=== PATIENT | male | born 1960 | race African-American/Black ===

== ENCOUNTER 2024-04-30 19:18 | Inpatient (IN) | payer OTHER ==
[~2024-04-30] VITALS: Ht 193 cm; Wt 171.3 kg
--- NOTE | 2024-04-30 19:43 | ED.PDOC ---
History of Present Illness HPI Comments 63M presents to the ER w/ no prior Hx associated top the c/c of generalized weakness. Pt reports that he woke up this morning by feeling weak and stated that whenever he gets up to walk he gets very dizzy. Pt states that he also had black stool of /D before going to work but when he went again after work it formed but stayed black in color. PMHx of HTN. Denies chills, fever, N/V/D, SOB, CP or other associated symptom's, modifiers, or recent injuries or sick contact at this time. Time Seen by MD: 19:25 Reviewed Notes: Nurses Notes, Medications, Allergies Allergies: Coded Allergies: NO KNOWN ALLERGIES (Unverified , 04/30/24) Information Source: Patient Mode of Arrival: Ambulatory Severity: Moderate Timing: Hours Duration: Since onset, Hours Prehospital treatment: None Past Medical History PAST MEDICAL HISTORY: HTN Surgical History: Denies all surgeries Family History Family History: Reviewed,noncontributory to illness, Unknown Social History Smoker: Non-Smoker Alcohol: Denies ETOH Use Drugs: Denies Drug Use Lives In: Home Constitutional: reports: weakness; denies: chills, diaphoresis, fatigue, fever, malaise, sweats, others EENTM: denies: blurred vision, double vision, ear bleeding, ear discharge, ear drainage, ear pain, ear ringing, eye pain, eye redness, hearing loss, mouth pain, mouth swelling, nasal discharge, nose bleeding, nose congestion, nose pain, photophobia, tearing, throat pain, throat swelling, voice changes, others Respiratory: denies: cough, hemoptysis, orthopnea, SOB at rest, shortness of breath, SOB with excertion, stridor, wheezing, others Cardiovascular: denies: chest pain, dizzy spells, diaphoresis, Dyspnea on exertion, edema, irregular heart beat, left arm pain, lightheadedness, palpitations, PND, syncope, others Gastrointestinal: reports: diarrhea, rectal bleeding; denies: abdomen distended, abdominal pain, blood streaked bowels, constipated, dysphagia, difficulty swallowing, hematemesis, melena, nausea, poor appetite, poor fluid intake, rectal pain, vomiting, others Genitourinary: denies: burning, dysuria, flank pain, frequency, hematuria, incontinence, penile discharge, penile sore, pain, testicle pain, testicle swelling, urgency, others Neurological: reports: dizziness; denies: fainting, headache, left sided numbness, left sided weakness, numbness, paresthesia, pre-existing deficit, right sided numbness, right sided weakness, seizure, speech problems, tingling, tremors, weakness, others Musculoskeletal: denies: back pain, gout, joint pain, joint swelling, muscle pain, muscle stiffness, neck pain, others Integumetry: denies: bruises, change in color, change in hair/nails, dryness, laceration, lesions, lumps, rash, wounds, others Allergic/Immunocompromised: denies: Difficulty Healing, Frequent Infections, Hives, Itching, others Hematologic/Lymphatic: denies: anemia, blood clots, easy bleeding, easy bruising, swollen glands, others Endocrine: denies: excessive hunger, excessive sweating, excessive thirst, excessive urination, flushing, intolerance to cold, intolerance to heat, unexplained weight gain, unexplained weight loss, others Psychiatric: denies: anxiety, bipolar disorder, depression, hopeless, panic disorder, schizophrenia, sleepless, suicidal, others All Other Systems: Reviewed and Negative Physical Exam Exam Comments Black Stool Guaiac is Positive General Appearance: No Apparent Distress, Normal HEENT: Normal ENT Inspection, Pharynx Normal, TMs Normal Neck: Full Range of Motion, Non-Tender, Normal, Normal Inspection Respiratory: Chest Non-Tender, Lungs Clear, No Accessory Muscle Use, No Respiratory Distress, Normal Breath Sounds Cardiovascular: No Edema, No JVD, No Murmur, No Gallop, Normal Peripheral Pulses, Regular Rate/Rhythm Breast Exam: Deferred Gastrointestinal: No Organomegaly, Non Tender, No Pulsatile Mass, Normal Bowel Sounds, Soft Genitalia: Deferred Pelvic: Deferred Rectal: Deferred Extremities: No calf tenderness, Normal capillary refill, Normal inspection, Normal range of motion, Non-tender, No pedal edema Musculoskeletal : Apperance: Normal Neurologic: Alert, deputy chief magistrate II-XII nml as Tested, No Motor Deficits, Normal Affect, Normal Mood, No Sensory Deficits Cerebellar Function: Normal Reflexes: Normal Skin: Dry, Normal Color, Warm Lymphatic: No Adenopathy Was a procedure done? Was a procedure done?: No Differential Dx Considerations may include: UGIB, LGUB, anemia, aortic-entero fistula, diverticulosis/ itis, PUD, esophageal varices, coagulopathy, hemorrhoids, GI malignancy, swallowed blood from epistaxis X-Ray, Labs, Meds, VS Vital Signs Date Time Temp Pulse Resp B/P (MAP) Pulse Ox O2 Delivery O2 Flow Rate FiO2 04/30/24 19:53 98.1 112 18 166/74 (104) 99 Lab Test 04/30/24 21:20 04/30/24 21:00 Range/Units Urine Color Light-yellow Yellow Urine Clarity Clear Clear Urine pH 5.5 5.0-9.0 Urine Specific [place] 1.025 1.001-1.035 Urine Protein Negative Negative Urine Ketones Negative Negative Urine Blood Negative Negative /uL Urine Nitrite Negative Negative Urine Bilirubin Negative Negative Urine Urobilinogen Normal Negative mg/dL Urine Leukocyte Esterase 3+ Negative /uL Urine RBC 1 0 - 3 /hpf Urine WBC 11 0 - 3 /hpf Urine Squamous Epithelial Cells Few <5 /hpf Urine Bacteria None seen None Seen /hpf Urine Hyaline Casts Few 0 - 2 /lpf Urine Glucose Normal Normal mg/dL White Blood Count 12.8 H 4.4-10.8 10^3/uL Red Blood Count 4.84 4.5-5.90 10^6/uL Hemoglobin 13.9 13.5-17.5 g/dL Hematocrit 42.1 41.0-53.0 % Mean Corpuscular Volume 87.1 80.0-100.0 fL Mean Corpuscular Hemoglobin 28.7 28.0-32.0 pg Mean Corpuscular Hemoglobin Concent 32.9 32.0-36.0 g/dL Red Cell Distribution Width 14.1 11.8-14.3 % Platelet Count 217 140-450 10^3/uL Mean Platelet Volume 7.8 6.9-10.8 fL Neutrophils (%) (Auto) 71.0 37.0-80.0 % Lymphocytes (%) (Auto) 20.5 10.0-50.0 % Monocytes (%) (Auto) 7.0 0.0-12.0 % Eosinophils (%) (Auto) 0.7 0.0-7.0 % Basophils (%) (Auto) 0.8 0.0-2.0 % Neutrophils # (Auto) 9.1 H 1.6-8.6 10 ^3/uL Lymphocytes # (Auto) 2.6 0.4-5.4 10 ^3/uL Monocytes # (Auto) 0.9 0-1.3 10 ^3/uL Eosinophils # (Auto) 0.1 0-0.8 10 ^3/uL Basophils # (Auto) 0.1 0-0.2 10 ^3/uL Nucleated Red Blood Cells 0.1 % Sodium Level 141 136-145 mmol/L Potassium Level 3.8 3.5-5.1 mmol/L Chloride Level 108 H 98-107 mmol/L Carbon Dioxide Level 24 20-31 mmol/L Anion Gap 9 5-15 Blood Urea Nitrogen 33 H 9-23 mg/dL Creatinine 1.21 0.700-1.30 mg/dL Glomerular Filtration Rate Calc 68 >90 mL/min BUN/Creatinine Ratio 27.3 H 10.0-20.0 Serum Glucose 120 H 74-106 mg/dL Calcium Level 9.3 8.7-10.4 mg/dL Time of 1ST Reevaluation: 19:55 Reevaluation 1ST: Improved Time of 2ND Reevaluation: 21:40 Reevaluation 2ND: Improved Patient Education/Counseling: Diagnosis, Treatment, Prognosis, Need For Follow Up Family Education/Counseling: No Family Present Additional Information - The following tests were ordered, and results were reviewed by me: CT, BBK, LAB - I reviewed and agreed with the following test results read by other provider: CT - I discussed treatments and results with medical personnel and: (medical economics consultant) pt has melena and it is guaiac positive. he does use NSAID for his knee, which likely caused gastritis/PUD, leading to UGIB. he is symptomatic from it, but vss are so far stable and he has no hemorrhaged here. elleneve, with him being quite symptomatic, i will admit him for gi evaluation and close observation Departure 1 Departure Time of Disposition: 22:09 Impression: Primary Impression: UGIB (upper gastrointestinal bleed) Additional Impressions: UTI (urinary tract infection) Qualified Codes: N30.00 - Acute cystitis without hematuria Cholelithiasis Qualified Codes: K80.20 - Calculus of gallbladder without cholecystitis without obstruction Disposition: ADMITTED INPATIENT Admit to: Med Surg Condition: Fair Critical Care Note Critical Care Time?: No Stability Stability form required: No I personally scribed for SHIRIN SERRANO MD ([facility]) on 04/30/24 at 19:43. Electronically submitted by Jeffrey Adrian ([email or web address]). SHIRIN SERRANO MD Apr 30, 2024 19:43
--- NOTE | 2024-04-30 20:57 | DVH ---
Exam: CT CT AB PEL WO CON-NO ORAL OR IV History: GI BLEED Comparison Study: None available at time of dictation. TECHNIQUE: Multidetector CT of the abdomen was performed from lung bases to pubic symphysis. Imaging was performed without IV contrast. Axial, coronal and sagittal multiplanar reformats were obtained fr om the axial data set by the technologist. Radiation Dose Information: CT Dose: CTDI volume is 25.85 mGy. Dose-length product is 1512.38 mGy*cm FINDINGS: Evaluation of solid organs is limited due to lack of intravenous contrast use. Findings: Lung Bases: No acute or significant lung base finding. Normal heart size. No pleural or pericardial effusion. Liver: The liver is normal in size. No focal lesions. Gallbladder and Biliary Tree: Cholelithiasis Spleen: Unremarkable Pancreas: The pancreas is grossly normal in appearance. Adrenal Glands: Unremarkable Kidneys: Kidneys are grossly normal without calculi or hydronephrosis. Bladder: Grossly unremarkable for degree of distention. Bowel: The stomach is grossly normal in appearance. Small bowel and colon are normal in caliber and d istribution. The appendix is not visualized; however, no secondary findings of acute appendicitis id entified. Ascites: Absent Lymphadenopathy: No mesenteric, retroperitoneal or periportal lymphadenopathy. Abdominal Wall and Mesentery: Unremarkable. Vasculature: The visualized abdominal aorta is normal in size and caliber. Evaluation of abdominal a nd pelvic vessels is limited due to lack of intravenous contrast. Pelvic Organs: Unremarkable Musculoskeletal: No aggressive focal bony lesions, acute fractures or dislocation. Soft tissues: Unremarkable IMPRESSION: 1. No findings of bowel obstruction. 2. Cholelithiasis 3. No free air or free fluid. Radiation optimization: All CT scans at this facility use at least one of these dose optimization kip hniques: automated exposure control mA and/or kV adjustment per patient size (includes targeted exam s where dose is matched to clinical indication) or iterative reconstruction.
[2024-04-30 21:21] LABS: Urine Bacteria None Seen /hpf (None Seen)
[2024-04-30 21:30] LABS: Urine Blood Negative /uL (Negative); Urine Clarity Clear (Clear); Urine Color Light-Yellow (Yellow); Urine Hyaline Cast FEW /lpf (0 - 2); Urine Protein, UAD Negative (Negative); Urine Specific Gravity 1.025 (1.001-1.035); Urine Urobilinogen Normal (Negative); Urine WBC 11 /hpf (0 - 3); Urine pH 5.5 (5.0-9.0)
[2024-04-30 21:45] LABS: Basophils # (auto) 0.1 10 ^3/uL (0-0.2); Basophils % (auto) 0.8 % (0.0-2.0); Eosinophils # (auto) 0.1 10 ^3/uL (0-0.8); Eosinophils % (auto) 0.7 % (0.0-7.0); Hematocrit 42.1 % (41.0-53.0); Hemoglobin 13.9 g/dL (13.5-17.5); Lymphocytes # (auto) 2.6 10 ^3/uL (0.4-5.4); Lymphocytes % (auto) 20.5 % (10.0-50.0); Mean Corpuscular Hemoglobin 28.7 pg (28.0-32.0); Mean Corpuscular Hgb Conc. 32.9 g/dL (32.0-36.0); Mean Corpuscular Volume 87.1 fL (80.0-100.0); Monocytes # (auto) 0.9 10 ^3/uL (0-1.3); Neutrophils # (auto) 9.1 10 ^3/uL (1.6-8.6); Nucleated Red Blood Cells % 0.1 %; Platelet Count (auto) 217 10^3/uL (140-450); Red Blood Cells 4.84 10^6/uL (4.5-5.90); Red Cell Distribution Width 14.1 % (11.8-14.3); White Blood Cell 12.8 10^3/uL (4.4-10.8)
[2024-04-30 21:54] LABS: Potassium 3.8 mmol/L (3.5-5.1); Sodium 141 mmol/L (136-145)
[2024-04-30 21:55] LABS: Anion Gap 9 (5-15); Carbon Dioxide 24 mmol/L (20-31)
[2024-04-30 21:56] LABS: Calcium 9.3 mg/dL (8.7-10.4)
[2024-04-30 22:00] LABS: BUN/Creatinine Ratio 27.3 (10.0-20.0)
[2024-04-30 22:01] LABS: Blood Urea Nitrogen 33 mg/dL (9-23); Chloride 108 mmol/L (98-107); Glucose 120 mg/dL (74-106)
[2024-04-30] MEDS ORDERED: ONDANSETRON HCL 4 MG/2 ML VIAL IV PRN (22:45)
[2024-04-30] MEDS: PANTOPRAZOLE 40 MG/10 ML VIAL INJ IV ONE (22:53)
[2024-04-30] MEDS: SODIUM CHLORIDE 0.9% 1,000 ML IV SCH (22:54)
[2024-04-30] MEDS: cefTRIAXone 1GM/50ML D5W 50 ML IV ONE (22:54)
--- NOTE | 2024-04-30 22:56 | DVHHP2 ---
History of Present Illness Reason for Visit: GI bleed History of Present Illness 63-year-old male evaluation of GI bleed. Patient reports a one day history of noticing dark-colored stools with blood. He denies being on blood thinners. He associates symptoms of dizziness and fatigue. Denies chest pain or shortness for breath. No other acute complaints reported. Past Medical History Hypertension Past Surgical History Denies Family History Noncontributory Smoke: No ALCOHOL: none Drugs: None Lives: with Family Review of Systems Review of Systems Review of systems are currently negative otherwise addressed in HPI. Allergies: Coded Allergies: NO KNOWN ALLERGIES (Unverified , 04/30/24) Medications Current Medications Medications Dose Ordered Sig/Amilcar Route Start Time Stop Time Status Last Admin Dose Admin Pantoprazole Sodium 40 mg BID IV 05/01/24 10:00 Ceftriaxone Sodium 50 ml @ 100 mls/hr DAILY@09 IV 05/01/24 09:00 Sodium Chloride 1,000 ml @ 75 mls/hr [id number] IV 04/30/24 22:45 Ondansetron HCl 4 mg Q4HP PRN IV 04/30/24 22:45 Exam Vital Signs Vital Signs Date Time Temp Pulse Resp B/P (MAP) Pulse Ox O2 Delivery O2 Flow Rate FiO2 04/30/24 19:53 98.1 112 18 166/74 (104) 99 Exam Gen: 63-year-old male in mild distress, morbidly obese Skin: Warm, dry, normal color and texture, no rash. HEENT: Normocephalic atraumatic, mucous membranes moist and pink. Neck: Cervical and supraclavicular nodes normal without enlargement, trachea is midline, thyroid gland is normal without masses. Pulmonary: Clear to auscultation and percussion bilaterally. Cardiac: Regular rate and rhythm. No murmur Abdomen: Soft, nontender, nondistended, bowel sounds present all 4 quadrants, no guarding, no rigidity, no organomegaly. Extremities: No cyanosis, clubbing, no edema Neuro: Cranial nerves II through XII grossly intact, normal affect and speech, no focal motor deficits. Labs/Xrays ORDERING PHYSICIAN: SHIRIN SERRANO MD PROCEDURE(s): ABPL - CT AB PEL WO CON-NO ORAL OR IV REASON: GI BLEED ORDER NUMBER(s): [id number], ACCESSION NUMBER(s): [id number] Exam: CT CT AB PEL WO CON-NO ORAL OR IV History: GI BLEED Comparison Study: None available at time of dictation. TECHNIQUE: Multidetector CT of the abdomen was performed from lung bases to pubic symphysis. Imaging was performed without IV contrast. Axial, coronal and sagittal multiplanar reformats were obtained from the axial data set by the technologist. Radiation Dose Information: CT Dose: CTDI volume is 25.85 mGy. Dose-length product is 1512.38 mGy*cm FINDINGS: Evaluation of solid organs is limited due to lack of intravenous contrast use. Findings: Lung Bases: No acute or significant lung base finding. Normal heart size. No pleural or pericardial effusion. Liver: The liver is normal in size. No focal lesions. Gallbladder and Biliary Tree: Cholelithiasis Spleen: Unremarkable Pancreas: The pancreas is grossly normal in appearance. Adrenal Glands: Unremarkable Kidneys: Kidneys are grossly normal without calculi or hydronephrosis. Bladder: Grossly unremarkable for degree of distention. Bowel: The stomach is grossly normal in appearance. Small bowel and colon are normal in caliber and distribution. The appendix is not visualized; however, no secondary findings of acute appendicitis identified. Ascites: Absent Lymphadenopathy: No mesenteric, retroperitoneal or periportal lymphadenopathy. Abdominal Wall and Mesentery: Unremarkable. Vasculature: The visualized abdominal aorta is normal in size and caliber. Evaluation of abdominal and pelvic vessels is limited due to lack of intravenous contrast. Pelvic Organs: Unremarkable Musculoskeletal: No aggressive focal bony lesions, acute fractures or dislocation. Soft tissues: Unremarkable IMPRESSION: 1. No findings of bowel obstruction. 2. Cholelithiasis 3. No free air or free fluid. Radiation optimization: All CT scans at this facility use at least one of these dose optimization techniques: automated exposure control mA and/or kV adjustment per patient size (includes targeted exams where dose is matched to clinical indication) or iterative reconstruction. Labs Test 04/30/24 21:20 04/30/24 21:00 Range/Units Urine Color Light-yellow Yellow Urine Clarity Clear Clear Urine pH 5.5 5.0-9.0 Urine Specific [place] 1.025 1.001-1.035 Urine Protein Negative Negative Urine Ketones Negative Negative Urine Blood Negative Negative /uL Urine Nitrite Negative Negative Urine Bilirubin Negative Negative Urine Urobilinogen Normal Negative mg/dL Urine Leukocyte Esterase 3+ Negative /uL Urine RBC 1 0 - 3 /hpf Urine WBC 11 0 - 3 /hpf Urine Squamous Epithelial Cells Few <5 /hpf Urine Bacteria None seen None Seen /hpf Urine Hyaline Casts Few 0 - 2 /lpf Urine Glucose Normal Normal mg/dL White Blood Count 12.8 H 4.4-10.8 10^3/uL Red Blood Count 4.84 4.5-5.90 10^6/uL Hemoglobin 13.9 13.5-17.5 g/dL Hematocrit 42.1 41.0-53.0 % Mean Corpuscular Volume 87.1 80.0-100.0 fL Mean Corpuscular Hemoglobin 28.7 28.0-32.0 pg Mean Corpuscular Hemoglobin Concent 32.9 32.0-36.0 g/dL Red Cell Distribution Width 14.1 11.8-14.3 % Platelet Count 217 140-450 10^3/uL Mean Platelet Volume 7.8 6.9-10.8 fL Neutrophils (%) (Auto) 71.0 37.0-80.0 % Lymphocytes (%) (Auto) 20.5 10.0-50.0 % Monocytes (%) (Auto) 7.0 0.0-12.0 % Eosinophils (%) (Auto) 0.7 0.0-7.0 % Basophils (%) (Auto) 0.8 0.0-2.0 % Neutrophils # (Auto) 9.1 H 1.6-8.6 10 ^3/uL Lymphocytes # (Auto) 2.6 0.4-5.4 10 ^3/uL Monocytes # (Auto) 0.9 0-1.3 10 ^3/uL Eosinophils # (Auto) 0.1 0-0.8 10 ^3/uL Basophils # (Auto) 0.1 0-0.2 10 ^3/uL Nucleated Red Blood Cells 0.1 % Sodium Level 141 136-145 mmol/L Potassium Level 3.8 3.5-5.1 mmol/L Chloride Level 108 H 98-107 mmol/L Carbon Dioxide Level 24 20-31 mmol/L Anion Gap 9 5-15 Blood Urea Nitrogen 33 H 9-23 mg/dL Creatinine 1.21 0.700-1.30 mg/dL Glomerular Filtration Rate Calc 68 >90 mL/min BUN/Creatinine Ratio 27.3 H 10.0-20.0 Serum Glucose 120 H 74-106 mg/dL Calcium Level 9.3 8.7-10.4 mg/dL Assessment/Plan Assessment/Plan Assessment GI bleed Urinary tract infection Morbid obesity Hypertension Plan Admit the patient to Med surge to the hospitalist GI consult Nothing by mouth Maintenance IV fluids Continue treatment per orders. Plan discussed with: Patient My Orders Orders - SAQIB SAMSON Procedure Category Date Status Time Admit ADMIT 04/30/24 Transmitted 22:14 Pantoprazole PHA 05/01/24 In Process (Protonix) 10:00 * Gi Dvh [employer] CONS 04/30/24 Transmitted 22:33 Ceftriaxone 1gm/50ml PHA 05/01/24 In Process D5w (Rocephin) 09:00 Sodium Chloride 0.9% PHA 04/30/24 In Process 22:45 Stool Occult Blood LAB 04/30/24 Logged 22:33 Basic Metabolic Panel LAB 05/01/24 Verified 04:00 Ondansetron Hcl PHA 04/30/24 In Process (Zofran) 22:45 Complete Blood Count LAB 05/01/24 Verified 04:00 Npo (Nothing By DIET 05/01/24 Transmitted Mouth) Diet Breakfast Condition: Stable JOLANTA 04/30/24 In Process 22:33 Bedrest With Bathroom JOLANTA 04/30/24 In Process Privileg 22:33 Date of Service: Apr 30, 2024 Billing Provider: SAQIB SAMSON Common Visit Codes: 30175-[id number] INP/OBS CARE (HIGH) SAQIB SAMSON Apr 30, 2024 22:56
[2024-05-01] VITALS (7 sets, daily range): BP systolic 102–114; BP diastolic 52–89; PULSE 78–103; RESP 15–20; TEMP 97.9–98.3; O2SAT 95–99
[2024-05-01] MEDS ORDERED: HYDR25TA5 PO (02:06)
[2024-05-01] MEDS ORDERED: NAP500T PO (02:06)
[2024-05-01] MEDS: PANTOPRAZOLE 40 MG/10 ML VIAL INJ IV SCH (09:48)
[2024-05-01] MEDS: cefTRIAXone 1GM/50ML D5W 50 ML IV SCH (09:48)
[2024-05-01 11:00] LABS: Basophils # (auto) 0.1 10 ^3/uL (0-0.2); Basophils % (auto) 0.6 % (0.0-2.0); Eosinophils # (auto) 0.1 10 ^3/uL (0-0.8); Eosinophils % (auto) 0.6 % (0.0-7.0); Hematocrit 37.8 % (41.0-53.0); Hemoglobin 12.6 g/dL (13.5-17.5); Lymphocytes # (auto) 2.7 10 ^3/uL (0.4-5.4); Lymphocytes % (auto) 20.2 % (10.0-50.0); Mean Corpuscular Hemoglobin 29.2 pg (28.0-32.0); Mean Corpuscular Hgb Conc. 33.4 g/dL (32.0-36.0); Mean Corpuscular Volume 87.2 fL (80.0-100.0); Monocytes # (auto) 0.8 10 ^3/uL (0-1.3); Monocytes % (auto) 5.8 % (0.0-12.0); Neutrophils # (auto) 9.6 10 ^3/uL (1.6-8.6); Neutrophils % (auto) 72.8 % (37.0-80.0); Nucleated Red Blood Cells % 0.2 %; Platelet Count (auto) 178 10^3/uL (140-450); Red Blood Cells 4.33 10^6/uL (4.5-5.90); White Blood Cell 13.2 10^3/uL (4.4-10.8)
[2024-05-01 11:07] LABS: Chloride 108 mmol/L (98-107); Potassium 3.7 mmol/L (3.5-5.1); Sodium 142 mmol/L (136-145)
[2024-05-01 11:08] LABS: Anion Gap 8 (5-15); Calcium 9.1 mg/dL (8.7-10.4); Carbon Dioxide 26 mmol/L (20-31)
[2024-05-01 11:13] LABS: Glucose 108 mg/dL (74-106)
[2024-05-01 11:14] LABS: BUN/Creatinine Ratio 27.7 (10.0-20.0); Blood Urea Nitrogen 28 mg/dL (9-23)
--- NOTE | 2024-05-01 16:50 | DVHPN2 ---
Subjective 63-year-old male with a history of hypertension and chronic pain of the knees and back who came to the hospital due to black stools for 2 days He was taking naproxen at home, he takes 500 mg twice a day and sometimes he takes 1 and half tablets He denies abdominal pain He has nausea but no vomiting no hematemesis Changes from previous H/P or p: Changes Objective Vitals Vital Signs Date Time Temp Pulse Resp B/P (MAP) Pulse Ox O2 Delivery O2 Flow Rate FiO2 05/01/24 13:00 98.3 94 18 102/56 (71) 99 98.3 05/01/24 08:00 Nasal Cannula* 2 28 Intake/Output Intake and Output 05/01/24 07:00 Intake Total 500 ml Output Total 200 ml Balance 300 ml Intake Oral 0 ml IV Total 500 ml Output Urine Total 200 ml # Bowel Movements 1 General Appearance: Alert, Oriented X3, Cooperative, No acute distress Lungs: Clear to auscultation, Normal air movement Cardiovascular: Regular rate, Normal S1, Normal S2, No murmurs Abdomen: Normal bowel sounds, Soft, No tenderness Extremities: No edema Medications Current Medications Medications Dose Ordered Sig/Amilcar Route Start Time Stop Time Status Last Admin Dose Admin Pantoprazole Sodium 40 mg BID IV 05/01/24 10:00 05/01/24 09:48 40 MG Ceftriaxone Sodium 50 ml @ 100 mls/hr DAILY@09 IV 05/01/24 09:00 05/01/24 09:48 100 MLS/HR Sodium Chloride 1,000 ml @ 75 mls/hr [id number] IV 04/30/24 22:45 05/01/24 12:05 75 MLS/HR Ondansetron HCl 4 mg Q4HP PRN IV 04/30/24 22:45 Laboratory Results Laboratory Tests 05/01/24 10:36 Chemistry Test 04/30/24 21:00 05/01/24 10:36 Calcium Level 9.3 mg/dL (8.7-10.4) 9.1 mg/dL (8.7-10.4) Urinalysis Test 04/30/24 21:20 Urine Color Light-yellow (Yellow) Urine Clarity Clear (Clear) Urine pH 5.5 (5.0-9.0) Urine Specific [place] 1.025 (1.001-1.035) Urine Protein Negative (Negative) Urine Ketones Negative (Negative) Urine Blood Negative /uL (Negative) Urine Nitrite Negative (Negative) Urine Bilirubin Negative (Negative) Urine Urobilinogen Normal mg/dL (Negative) Urine Leukocyte Esterase 3+ /uL (Negative) Urine RBC 1 /hpf (0 - 3) Urine WBC 11 /hpf (0 - 3) Urine Squamous Epithelial Cells Few /hpf (<5) Urine Bacteria None seen /hpf (None Seen) Urine Hyaline Casts Few /lpf (0 - 2) Urine Glucose Normal mg/dL (Normal) Assessment/Plan Assessment/Plan GI bleed, most likely upper due to NSAIDs Acute anemia due to blood loss Acute kidney injury Dizziness due to dehydration Dehydration Leukocytosis, could be reactive Cholelithiasis UTI Plan Continue IV fluids with normal saline Start clear liquid diet Keep him NPO after midnight GI consult Protonix 40 mg twice a day Hold NSAIDs Rocephin for UTI Discussed with the at the bedside Full code Advance directives discussed for 20 minutes Plan discussed with: Patient, Spouse Date of Service: May 01, 2024 Billing Provider: ALEKSANDER SHANE MD Common Visit Codes: 61055-[id number] INP/OBS CARE(HIGH) Secondary Visit Codes: 07577-[id number] CARE PLAN 30 MINUTES ALEKSANDER SHANE MD May 01, 2024 16:50
--- NOTE | 2024-05-01 23:44 | DVHINCON2 ---
Date of service: May 01, [address] Valero Reason for Consultation GIB History of Present Illness 63 y/o M pt with PMH of HTN, obesity admitted with melena. Hb stable. He reports having melena, few episodes prior to admission. Denies abd pain/CGE/hematemesis. Takes Naproxen daily. He had colonoscopy 5 yrs ago. No ASA/blood thinner intake. Past Medical History Reviewed Past Surgical History Reviewed Family History: Gastric ulcer Allergies: Coded Allergies: NO KNOWN ALLERGIES (Unverified , 04/30/24) Home Meds Active Scripts Sucralfate (CARAFATE) 1 Gm Tab, 1 GM OR QIDACHS for 30 Days, #120 TAB 2 Refills Prov:ALEKSANDER SHANE MD 05/03/24 Pantoprazole Sodium Sesquihydr (Protonix) 40 Mg Tab, 40 MG PO BID for 30 Days, #60 TAB 2 Refills Prov:ALEKSANDER SHANE MD 05/03/24 Reported Medications Naproxen (NAPROSYN TABLET) 500 Mg Tb, 1 TAB PO BIDPRN 05/01/24 Hctz (Hydrochlorothiazide) 25 Mg Tab, 1 TAB PO DAILY 05/01/24 Current Medications Current Medications Medications (Trade) Dose Ordered Sig/Amilcar Route PRN Reason Start Time Stop Time Status Last Admin Pantoprazole Sodium (Protonix) 40 mg BID IV 05/01/24 10:00 05/01/24 21:41 Ceftriaxone Sodium 50 ml @ 100 mls/hr DAILY@09 IV 05/01/24 09:00 05/01/24 09:48 Review of Systems 14 point ROS neg except mentioned above Vital Signs Vital Signs Date Time Temp Pulse Resp B/P (MAP) Pulse Ox O2 Delivery O2 Flow Rate FiO2 05/01/24 22:00 98.2 99 18 114/63 (80) 98 98.2 05/01/24 20:00 Room Air* 0 21 Physical Exam GE: in no acute distress CVS: S1S2+ Lungs: clear Abdomen: soft, nondistended, nontender, BS+ Labs/Diagnostic Data Labs Test 05/01/24 10:36 05/01/24 02:40 04/30/24 21:20 Range/Units White Blood Count 13.2 H 4.4-10.8 10^3/uL Red Blood Count 4.33 L 4.5-5.90 10^6/uL Hemoglobin 12.6 L 13.5-17.5 g/dL Hematocrit 37.8 #L 41.0-53.0 % Mean Corpuscular Volume 87.2 80.0-100.0 fL Mean Corpuscular Hemoglobin 29.2 28.0-32.0 pg Mean Corpuscular Hemoglobin Concent 33.4 32.0-36.0 g/dL Red Cell Distribution Width 14.0 11.8-14.3 % Platelet Count 178 140-450 10^3/uL Mean Platelet Volume 7.7 6.9-10.8 fL Neutrophils (%) (Auto) 72.8 37.0-80.0 % Lymphocytes (%) (Auto) 20.2 10.0-50.0 % Monocytes (%) (Auto) 5.8 0.0-12.0 % Eosinophils (%) (Auto) 0.6 0.0-7.0 % Basophils (%) (Auto) 0.6 0.0-2.0 % Neutrophils # (Auto) 9.6 H 1.6-8.6 10 ^3/uL Lymphocytes # (Auto) 2.7 0.4-5.4 10 ^3/uL Monocytes # (Auto) 0.8 0-1.3 10 ^3/uL Eosinophils # (Auto) 0.1 0-0.8 10 ^3/uL Basophils # (Auto) 0.1 0-0.2 10 ^3/uL Nucleated Red Blood Cells 0.2 % Sodium Level 142 136-145 mmol/L Potassium Level 3.7 3.5-5.1 mmol/L Chloride Level 108 H 98-107 mmol/L Carbon Dioxide Level 26 20-31 mmol/L Anion Gap 8 5-15 Blood Urea Nitrogen 28 H 9-23 mg/dL Creatinine 1.01 0.700-1.30 mg/dL Glomerular Filtration Rate Calc 85 >90 mL/min BUN/Creatinine Ratio 27.7 H 10.0-20.0 Serum Glucose 108 H 74-106 mg/dL Calcium Level 9.1 8.7-10.4 mg/dL Stool Occult Blood Positive Negative Stool Occult Blood Sample #3 Negative Urine Color Light-yellow Yellow Urine Clarity Clear Clear Urine pH 5.5 5.0-9.0 Urine Specific [place] 1.025 1.001-1.035 Urine Protein Negative Negative Urine Ketones Negative Negative Urine Blood Negative Negative /uL Urine Nitrite Negative Negative Urine Bilirubin Negative Negative Urine Urobilinogen Normal Negative mg/dL Urine Leukocyte Esterase 3+ Negative /uL Urine RBC 1 0 - 3 /hpf Urine WBC 11 0 - 3 /hpf Urine Squamous Epithelial Cells Few <5 /hpf Urine Bacteria None seen None Seen /hpf Urine Hyaline Casts Few 0 - 2 /lpf Urine Glucose Normal Normal mg/dL Assessment #Melena #Cholelithiasis #Obesity #HTN -Monitor Hb, keep >7 -PPI IV BID -Hb stable. Plan EGD, if melena persists -Avoid NSAIDs -Care plan discussed with pt and bedside. Thank you for the consult Plan discussed with: Patient ARPITA MENESES MD May 01, 2024 23:44
[2024-05-02] VITALS (7 sets, daily range): BP systolic 96–135; BP diastolic 57–71; PULSE 69–95; RESP 16–19; TEMP 97.4–98.8; O2SAT 96–99
[2024-05-02 07:24] LABS: Basophils # (auto) 0 10 ^3/uL (0-0.2); Basophils % (auto) 0.5 % (0.0-2.0); Eosinophils # (auto) 0.2 10 ^3/uL (0-0.8); Hematocrit 34.3 % (41.0-53.0); Hemoglobin 11.5 g/dL (13.5-17.5); Lymphocytes # (auto) 2.7 10 ^3/uL (0.4-5.4); Lymphocytes % (auto) 30.6 % (10.0-50.0); Mean Corpuscular Hgb Conc. 33.4 g/dL (32.0-36.0); Mean Corpuscular Volume 86.7 fL (80.0-100.0); Monocytes # (auto) 0.7 10 ^3/uL (0-1.3); Monocytes % (auto) 8.2 % (0.0-12.0); Neutrophils # (auto) 5.1 10 ^3/uL (1.6-8.6); Neutrophils % (auto) 58.7 % (37.0-80.0); Nucleated Red Blood Cells % 0.1 %; Platelet Count (auto) 182 10^3/uL (140-450); Red Blood Cells 3.96 10^6/uL (4.5-5.90); White Blood Cell 8.7 10^3/uL (4.4-10.8)
[2024-05-02 07:27] LABS: Alanine Aminotransferase 48 U/L (7-40); Albumin 3.4 g/dL (3.2-4.8); Alkaline Phosphatase 69 U/L (46-116); Anion Gap 8 (5-15); Aspartate Aminotransferase 34 U/L (13-40); BUN/Creatinine Ratio 18.6 (10.0-20.0); Bilirubin, Total 0.4 mg/dL (0.2-1.0); Blood Urea Nitrogen 19 mg/dL (9-23); Calcium 9.1 mg/dL (8.7-10.4); Carbon Dioxide 25 mmol/L (20-31); Chloride 107 mmol/L (98-107); Glucose 99 mg/dL (74-106); Magnesium 2.1 mg/dL (1.6-2.6); Potassium 3.7 mmol/L (3.5-5.1); Sodium 140 mmol/L (136-145); Total Protein 6.2 g/dL (5.7-8.2)
[2024-05-02] MEDS ORDERED: NALOXONE HCL 0.4 MG/ML VIAL ONE (13:30)
[2024-05-02] MEDS ORDERED: SODIUM CHLORIDE LOCK 10 ML ONE (13:30)
[2024-05-02] MEDS ORDERED: FLUMAZENIL 0.1 MG/ML INJ 10ML MDV IV ONE (13:30)
[2024-05-02] MEDS ORDERED: LIDOCAINE VISCOUS 2% 15ML UD ONE (13:30)
[2024-05-02] MEDS ORDERED: diphenhdrAMINE HCL 50 MG/1 ML VL ONE (13:31)
[2024-05-02] MEDS ORDERED: MIDAZOLAM HCL 5 MG/ML-1ML VIAL ONE (13:31)
[2024-05-02] MEDS ORDERED: SIMETHICONE 40 MG/0.6 ML ORAL DROP ONE (13:32)
[2024-05-02] MEDS ORDERED: fentaNYL CITRATE 100 MCG/2 ML VL ONE (13:32)
--- NOTE | 2024-05-02 14:35 | DVHPN2 ---
Subjective He had another bowel movement today which was melena Hemoglobin has stayed stable at 11.5 and chemistries are normal Changes from previous H/P or p: Changes Objective Vitals Vital Signs Date Time Temp Pulse Resp B/P (MAP) Pulse Ox O2 Delivery O2 Flow Rate FiO2 05/02/24 13:00 98.0 69 18 101/59 (73) 98 98.0 05/02/24 08:00 Room Air* 0 21 Intake/Output Intake and Output 05/02/24 07:00 Intake Total 2045 ml Balance 2045 ml Intake Oral 320 ml IV Total 1725 ml # Voids 4 # Bowel Movements 1 General Appearance: Alert, Oriented X3, Cooperative, No acute distress Lungs: Clear to auscultation, Normal air movement Cardiovascular: Regular rate, Normal S1, Normal S2, No murmurs Abdomen: Normal bowel sounds, Soft, No tenderness Extremities: No edema Medications Current Medications Medications Dose Ordered Sig/Amilcar Route Start Time Stop Time Status Last Admin Dose Admin Pantoprazole Sodium 40 mg BID IV 05/01/24 10:00 05/02/24 09:12 40 MG Ceftriaxone Sodium 50 ml @ 100 mls/hr DAILY@09 IV 05/01/24 09:00 05/02/24 09:12 100 MLS/HR Sodium Chloride 1,000 ml @ 75 mls/hr [id number] IV 04/30/24 22:45 05/02/24 12:30 75 MLS/HR Ondansetron HCl 4 mg Q4HP PRN IV 04/30/24 22:45 Laboratory Results Laboratory Tests 05/02/24 05:27 Chemistry Test 05/02/24 05:27 Albumin 3.4 g/dL (3.2-4.8) Calcium Level 9.1 mg/dL (8.7-10.4) Magnesium Level 2.1 mg/dL (1.6-2.6) Total Protein 6.2 g/dL (5.7-8.2) LFT Test 05/02/24 05:27 Alanine Aminotransferase (ALT) 48 U/L (7-40) H Alkaline Phosphatase 69 U/L (46-116) Aspartate Amino Transferase (AST) 34 U/L (13-40) Total Bilirubin 0.4 mg/dL (0.2-1.0) Urinalysis Test 04/30/24 21:20 Urine Color Light-yellow (Yellow) Urine Clarity Clear (Clear) Urine pH 5.5 (5.0-9.0) Urine Specific [place] 1.025 (1.001-1.035) Urine Protein Negative (Negative) Urine Ketones Negative (Negative) Urine Blood Negative /uL (Negative) Urine Nitrite Negative (Negative) Urine Bilirubin Negative (Negative) Urine Urobilinogen Normal mg/dL (Negative) Urine Leukocyte Esterase 3+ /uL (Negative) Urine RBC 1 /hpf (0 - 3) Urine WBC 11 /hpf (0 - 3) Urine Squamous Epithelial Cells Few /hpf (<5) Urine Bacteria None seen /hpf (None Seen) Urine Hyaline Casts Few /lpf (0 - 2) Urine Glucose Normal mg/dL (Normal) Assessment/Plan Assessment/Plan GI bleed, most likely upper due to NSAIDs Acute anemia due to blood loss Acute kidney injury Dizziness due to dehydration Dehydration Leukocytosis, could be reactive Cholelithiasis UTI Plan Continue IV fluids with normal saline Start clear liquid diet Keep him NPO after midnight GI consult Protonix 40 mg twice a day Hold NSAIDs Rocephin for UTI Discussed with the at the bedside Full code Advance directives discussed for 20 minutes 05/02/2024: Continue current management pending EGD today EGD today per GI Continue IV Protonix Monitor the hemoglobin and check again tomorrow Plan discussed with: Patient My Orders Orders - ALEKSANDER SHANE MD Procedure Category Date Status Time Clear Liq Diet DIET 05/01/24 Transmitted Dinner Npo (Nothing By DIET 05/01/24 Transmitted Mouth) Diet Dinner Code Status CODE 05/01/24 Transmitted 16:49 Date of Service: May 02, 2024 Billing Provider: ALEKSANDER SHANE MD Common Visit Codes: [id number] INP/OBS CARE(HIGH) ALEKSANDER SHANE MD May 02, 2024 14:35
--- NOTE | 2024-05-02 17:35 | DVHPN2 ---
Progress Note - Dictate Date Seen: May 02, 2024 Medical Necessity Reason Pt with a Central, PICC or Fol: No Subjective No melena today vital signs Vital Sign Date Time Temp Pulse Resp B/P (MAP) Pulse Ox O2 Delivery O2 Flow Rate FiO2 05/02/24 17:22 98.6 78 18 130/61 (84) 97 98.6 05/02/24 08:00 Room Air* 0 21 Total Intake and Output 05/01/24 05/01/24 05/02/24 15:00 23:00 07:00 Intake Total 50 ml 1200 ml 795 ml Balance 50 ml 1200 ml 795 ml medications Current Medications Medications Dose Ordered Sig/Amilcar Route Start Time Stop Time Status Last Admin Dose Admin Pantoprazole Sodium 40 mg BID IV 05/01/24 10:00 05/02/24 09:12 40 MG Ceftriaxone Sodium 50 ml @ 100 mls/hr DAILY@09 IV 05/01/24 09:00 05/02/24 09:12 100 MLS/HR Sodium Chloride 1,000 ml @ 75 mls/hr [id number] IV 04/30/24 22:45 05/02/24 12:30 75 MLS/HR Ondansetron HCl 4 mg Q4HP PRN IV 04/30/24 22:45 objective GE: in no distress CVS; S1S2+ Lungs clear Abdomen; soft, nondistended, nontender, BS+ laboratory and microbiology Laboratory Tests 05/02/24 05:27 Test 05/02/24 05:27 Range/Units Serum Glucose 99 74-106 mg/dL Assessment/Plan #Melena #Cholelithiasis #Obesity #HTN -Monitor Hb, keep >7 -PPI IV BID -Hb stable. Plan EGD today, was hard stick, multiple attempts by RNs for 45 min failed, canceled EGD today. reschedule tomorrow. Will sign out to Dr Cervantes -Avoid NSAIDs -Care plan discussed with pt and bedside. Thank you for allowing to participate in the care of this pt. Plan discussed with: Patient ARPITA MENESES MD May 02, 2024 17:35
[2024-05-03] VITALS (10 sets, daily range): BP systolic 104–125; BP diastolic 51–63; PULSE 70–80; RESP 14–20; TEMP 97.4–98.4; O2SAT 96–100
[2024-05-03 06:30] LABS: Potassium 3.6 mmol/L (3.5-5.1); Sodium 141 mmol/L (136-145)
[2024-05-03 06:31] LABS: Anion Gap 8 (5-15); Calcium 9.2 mg/dL (8.7-10.4); Carbon Dioxide 25 mmol/L (20-31)
[2024-05-03 06:36] LABS: BUN/Creatinine Ratio 14.7 (10.0-20.0); Blood Urea Nitrogen 14 mg/dL (9-23); Glucose 81 mg/dL (74-106); Magnesium 2.2 mg/dL (1.6-2.6)
[2024-05-03 06:43] LABS: Basophils # (auto) 0.1 10 ^3/uL (0-0.2); Basophils % (auto) 0.5 % (0.0-2.0); Eosinophils # (auto) 0.2 10 ^3/uL (0-0.8); Hematocrit 31.3 % (41.0-53.0); Hemoglobin 10.6 g/dL (13.5-17.5); INR 1.09 (0.9-1.15); Lymphocytes # (auto) 2.9 10 ^3/uL (0.4-5.4); Lymphocytes % (auto) 28.9 % (10.0-50.0); Mean Corpuscular Hemoglobin 29.3 pg (28.0-32.0); Mean Corpuscular Hgb Conc. 33.7 g/dL (32.0-36.0); Monocytes # (auto) 0.8 10 ^3/uL (0-1.3); Monocytes % (auto) 8.1 % (0.0-12.0); Neutrophils % (auto) 60.5 % (37.0-80.0); Partial Thromboplastin Time 25.3 SEC (24.5-34.5); Platelet Count (auto) 173 10^3/uL (140-450); Prothrombin Time 11.5 sec (9.3-11.8); Red Cell Distribution Width 13.9 % (11.8-14.3); White Blood Cell 9.9 10^3/uL (4.4-10.8)
--- NOTE | 2024-05-03 06:46 | DVH ---
CHEST RADIOGRAPH Indication: Pain Technique: Single frontal view of the chest was obtained COMPARISON: None FINDINGS: Lines and Tubes: None Lungs: Clear Pleura: No effusion. No pneumothorax. Cardiomediastinal contours: Unremarkable Bones: Unremarkable IMPRESSION: No acute disease.
[2024-05-03 06:49] LABS: Chloride 108 mmol/L (98-107)
--- NOTE | 2024-05-03 10:20 | DVHPN2 ---
Subjective He is still having melena Hemoglobin dropped to 10.6 Complains of gas and abdominal bloating Changes from previous H/P or p: Changes Objective Vitals Vital Signs Date Time Temp Pulse Resp B/P (MAP) Pulse Ox O2 Delivery O2 Flow Rate FiO2 05/03/24 05:00 98.3 74 16 125/59 (81) 99 98.3 05/02/24 20:00 Room Air* 0 21 Intake/Output Intake and Output 05/03/24 07:00 Intake Total 1425 ml Balance 1425 ml Intake Oral 0 ml IV Total 1425 ml # Voids 4 General Appearance: Alert, Oriented X3, Cooperative, No acute distress Lungs: Clear to auscultation, Normal air movement Cardiovascular: Regular rate, Normal S1, Normal S2, No murmurs Abdomen: Normal bowel sounds, Soft, No tenderness Extremities: No edema Medications Current Medications Medications Dose Ordered Sig/Amilcar Route Start Time Stop Time Status Last Admin Dose Admin Pantoprazole Sodium 40 mg BID IV 05/01/24 10:00 05/03/24 09:14 40 MG Ceftriaxone Sodium 50 ml @ 100 mls/hr DAILY@09 IV 05/01/24 09:00 05/03/24 09:14 100 MLS/HR Sodium Chloride 1,000 ml @ 75 mls/hr [id number] IV 04/30/24 22:45 05/03/24 06:54 75 MLS/HR Ondansetron HCl 4 mg Q4HP PRN IV 04/30/24 22:45 Laboratory Results Laboratory Tests 05/03/24 04:50 Chemistry Test 05/03/24 04:50 Calcium Level 9.2 mg/dL (8.7-10.4) Magnesium Level 2.2 mg/dL (1.6-2.6) Coagulation Test 05/03/24 04:50 Prothrombin Time 11.5 sec (9.3-11.8) Prothrombin Time INR 1.09 (0.9-1.15) Activated Partial Thromboplast Time 25.3 SEC (24.5-34.5) Urinalysis Test 04/30/24 21:20 Urine Color Light-yellow (Yellow) Urine Clarity Clear (Clear) Urine pH 5.5 (5.0-9.0) Urine Specific [place] 1.025 (1.001-1.035) Urine Protein Negative (Negative) Urine Ketones Negative (Negative) Urine Blood Negative /uL (Negative) Urine Nitrite Negative (Negative) Urine Bilirubin Negative (Negative) Urine Urobilinogen Normal mg/dL (Negative) Urine Leukocyte Esterase 3+ /uL (Negative) Urine RBC 1 /hpf (0 - 3) Urine WBC 11 /hpf (0 - 3) Urine Squamous Epithelial Cells Few /hpf (<5) Urine Bacteria None seen /hpf (None Seen) Urine Hyaline Casts Few /lpf (0 - 2) Urine Glucose Normal mg/dL (Normal) Assessment/Plan Assessment/Plan GI bleed, most likely upper due to NSAIDs Acute anemia due to blood loss Acute kidney injury Dizziness due to dehydration Dehydration Leukocytosis, could be reactive Cholelithiasis UTI Plan Continue IV fluids with normal saline Start clear liquid diet Keep him NPO after midnight GI consult Protonix 40 mg twice a day Hold NSAIDs Rocephin for UTI Discussed with the at the bedside Full code Advance directives discussed for 20 minutes 05/02/2024: Continue current management pending EGD today EGD today per GI Continue IV Protonix Monitor the hemoglobin and check again tomorrow 05/03/2024: Patient is scheduled for EGD today Continue to monitor hemoglobin Continue PPI Plan discussed with: Patient My Orders Orders - ALEKSANDER SHANE MD Procedure Category Date Status Time Clear Liq Diet DIET 05/02/24 Transmitted Dinner Npo After Midnight DIET 05/02/24 Transmitted Dinner Date of Service: May 03, 2024 Billing Provider: ALEKSANDER SHANE MD Common Visit Codes: [id number] INP/OBS CARE(HIGH) ALEKSANDER SHANE MD May 03, 2024 10:20
[2024-05-03] MEDS ORDERED: SODIUM CHLORIDE LOCK 10 ML ONE (10:23)
[2024-05-03] MEDS ORDERED: diphenhdrAMINE HCL 50 MG/1 ML VL ONE (10:24)
[2024-05-03] MEDS: LIDOCAINE VISCOUS 2% 15ML UD ONE (10:45)
[2024-05-03] MEDS: MIDAZOLAM HCL 5 MG/ML-1ML VIAL ONE (10:46)
[2024-05-03] MEDS: fentaNYL CITRATE 100 MCG/2 ML VL ONE (10:46)
--- NOTE | 2024-05-03 11:16 | DVHOP2 ---
Operative Report DATE OF PROCEDURE: 05/03/24 INDICATIONS FOR THE PROCEDURE: Abdominal pain GI bleeding melanotic stool PROCEDURE PERFORMED: 1. Esophagogastroduodenoscopy and biopsy POSTOPERATIVE DIAGNOSIS: 2 superficial ulcers in the gastric antrum with no gross bleeding seen at this time No visible vessels or active bleeding Some old blood in the fundus which could be from the bleeding from these ulcers Small hiatal hernia of 1 cm No esophageal varices no esophagitis INFORMED CONSENT: The risks and benefits and alternatives were explained to the patient and informed consent was obtained. PROCEDURE IN DETAIL: The patient was kept NPO after midnight. In the endoscopy room, he was given IV fentanyl 50 mcg and 2 mg Versed, titrated slowly to get him sedated. Olympus gastroscope was passed through the oropharynx into the stomach and the duodenum, and the findings were as follows. Esophagus: 1 cm hiatal hernia No esophagitis No esophageal varices No bleeding seen in the esophagus Stomach: Fundus: Some old blood cleaned out and grossly no lesions seen Body and antrum Two superficial gastric ulcers in the antrum pre-pylorically on the lesser curve aspect with no bleeding now No visible vessel or active bleeding mild gastritis in the same area without bleeding Biopsies taken to rule out H pylori and other pathology Pylorus normal Duodenum Normal no bleeding Endoscopic impression 2 superficial ulcers in the gastric antrum with no gross bleeding seen at this time No visible vessels or active bleeding Some old blood in the fundus which could be from the bleeding from these ulcers Small hiatal hernia of 1 cm No esophageal varices no esophagitis Suggestions Await the biopsy results Aggressive treatment with PPIs and Carafate if necessary We will recommend to avoid NSAIDs anticoagulants aspirin Follow closely for any bleed Since there is no active bleeding and slowly advance the diet and see Can be discharged if stable on PPIs and and if necessary care Thank you Dr. Negron for asking me to take part in the care of this pleasant patient With warm regards, RANJEET Mishra MD May 03, 2024 11:16
[2024-05-03] MEDS ORDERED: PANT40TA2 PO (15:53)
[2024-05-03] MEDS ORDERED: SUCR1TAB31 OR (15:53)
--- NOTE | 2024-05-03 16:00 | DVHDS2 ---
Discharge Summary Date of Admission Apr 30, 2024 at 22:14 Date of Discharge: May 03, 2024 Labs/Diagnostic Data: Laboratory Results Test 05/03/24 04:50 05/02/24 05:27 05/01/24 02:40 04/30/24 21:20 White Blood Count 9.9 10^3/uL (4.4-10.8) Red Blood Count 3.60 10^6/uL (4.5-5.90) Hemoglobin 10.6 g/dL (13.5-17.5) Hematocrit 31.3 % (41.0-53.0) Mean Corpuscular Volume 87.0 fL (80.0-100.0) Mean Corpuscular Hemoglobin 29.3 pg (28.0-32.0) Mean Corpuscular Hemoglobin Concent 33.7 g/dL (32.0-36.0) Red Cell Distribution Width 13.9 % (11.8-14.3) Platelet Count 173 10^3/uL (140-450) Mean Platelet Volume 7.6 fL (6.9-10.8) Neutrophils (%) (Auto) 60.5 % (37.0-80.0) Lymphocytes (%) (Auto) 28.9 % (10.0-50.0) Monocytes (%) (Auto) 8.1 % (0.0-12.0) Eosinophils (%) (Auto) 2.0 % (0.0-7.0) Basophils (%) (Auto) 0.5 % (0.0-2.0) Neutrophils # (Auto) 6.0 10 ^3/uL (1.6-8.6) Lymphocytes # (Auto) 2.9 10 ^3/uL (0.4-5.4) Monocytes # (Auto) 0.8 10 ^3/uL (0-1.3) Eosinophils # (Auto) 0.2 10 ^3/uL (0-0.8) Basophils # (Auto) 0.1 10 ^3/uL (0-0.2) Nucleated Red Blood Cells 0.0 % Prothrombin Time 11.5 sec (9.3-11.8) Prothrombin Time INR 1.09 (0.9-1.15) Activated Partial Thromboplast Time 25.3 SEC (24.5-34.5) Sodium Level 141 mmol/L (136-145) Potassium Level 3.6 mmol/L (3.5-5.1) Chloride Level 108 mmol/L (98-107) Carbon Dioxide Level 25 mmol/L (20-31) Anion Gap 8 (5-15) Blood Urea Nitrogen 14 mg/dL (9-23) Creatinine 0.95 mg/dL (0.700-1.30) Glomerular Filtration Rate Calc 91 mL/min (>90) BUN/Creatinine Ratio 14.7 (10.0-20.0) Serum Glucose 81 mg/dL (74-106) Calcium Level 9.2 mg/dL (8.7-10.4) Magnesium Level 2.2 mg/dL (1.6-2.6) Total Bilirubin 0.4 mg/dL (0.2-1.0) Aspartate Amino Transferase (AST) 34 U/L (13-40) Alanine Aminotransferase (ALT) 48 U/L (7-40) Alkaline Phosphatase 69 U/L (46-116) Total Protein 6.2 g/dL (5.7-8.2) Albumin 3.4 g/dL (3.2-4.8) Stool Occult Blood Positive (Negative) Stool Occult Blood Sample #3 (Negative) Urine Color Light-yellow (Yellow) Urine Clarity Clear (Clear) Urine pH 5.5 (5.0-9.0) Urine Specific [place] 1.025 (1.001-1.035) Urine Protein Negative (Negative) Urine Ketones Negative (Negative) Urine Blood Negative /uL (Negative) Urine Nitrite Negative (Negative) Urine Bilirubin Negative (Negative) Urine Urobilinogen Normal mg/dL (Negative) Urine Leukocyte Esterase 3+ /uL (Negative) Urine RBC 1 /hpf (0 - 3) Urine WBC 11 /hpf (0 - 3) Urine Squamous Epithelial Cells Few /hpf (<5) Urine Bacteria None seen /hpf (None Seen) Urine Hyaline Casts Few /lpf (0 - 2) Urine Glucose Normal mg/dL (Normal) Other Laboratory Tests 05/03/24 04:50 Brief Hx & Hospital Course: Final diagnoses: GI bleed, most likely upper due to NSAIDs Acute anemia due to blood loss Acute kidney injury Dizziness due to dehydration Dehydration Leukocytosis, could be reactive Cholelithiasis UTI 63-year-old male came with chief complaints of melena for few days with dizziness and lightheadedness. The patient was taking Naprosyn at home His hemoglobin dropped from 13.9-10.6 today He did not need blood transfusions GI recommended an EGD which showed 2 superficial ulcers in the gastric antrum with no active bleeding The patient continued to have some melena up until last night He had some dizziness lightheadedness so he was given IV fluids which improved his symptoms and also improved his kidney function Now he is doing well and therefore he will be advanced on his diet and then he can be discharged home after dinner Discharged home on Protonix and Carafate Follow up with his primary care physician as soon as possible Discontinue all NSAIDs Avoid caffeine Condition at Discharge: Stable Final Diagnosis/Problems List Upper GI bleed due to gastric ulcers Hypotension due to blood loss Acute anemia due to blood loss Discharge Disposition: Home SNF Discharge Will this Physician continue t: No Discharge Instruct/Medications Diet: Cardiac 2g Na,low cholest Diet comment: No caffeine Activity: No Restrictions, As Tolerated Follow Up/Referral: PCP as soon as possible Medications: Protonix 40 mg twice a day Carafate 1 g 4 times a day Discontinue all NSAIDs Discharge Statement: "Patient was advised to return to the ER or call 911 if any headaches, dizziness, shortness of breath, chest pain, abdominal pain, bleeding, fevers, or worsening of medical condition. Patient was counseled about treatment plan, medications, possible side effects, patientverbalized understanding. All questions were answered to the best of my ability. This discharge took greater then 30 minutes in planning, reviewing documentation, counseling the patient, and discussing with other team members." ASSESSMENT ASSESSMENT Assessment Upper GI bleed due to gastric ulcers Hypotension due to blood loss Acute anemia due to blood loss Date of Service: May 03, 2024 Billing Provider: ALEKSANDER SHANE MD Common Visit Codes: [id number] DISCH DAY >30min ALEKSANDER SHANE MD May 03, 2024 15:59
== END 2024-05-03 18:04 | disposition home or self-care (01) | DRG 378 ==
LOC: ER 19:18 → OVERFLOW 22:14 → WEST WING 05-01 01:50
PROVIDERS: ADMIT Nurse Practitioner; ATTEND Internal Medicine Geriatric Medicine
PROC: 0DB68ZX Excision of Stomach, Via Natural or Artificial Opening Endoscopic, Diagnostic (ICD-10-PCS; principal; 2024-05-03 10:36)
DX: K25.4 Chronic or unspecified gastric ulcer with hemorrhage (principal); D62 Acute posthemorrhagic anemia; N17.9 Acute kidney failure, unspecified; N39.0 Urinary tract infection, site not specified; Z68.42 Body mass index [BMI] 45.0-49.9, adult; E66.01 Morbid (severe) obesity due to excess calories; E86.0 Dehydration; K80.20 Calculus of gallbladder without cholecystitis without obstruction; I10 Essential (primary) hypertension; T39.395A Adverse effect of other nonsteroidal anti-inflammatory drugs [NSAID], initial encounter; K44.9 Diaphragmatic hernia without obstruction or gangrene; K29.70 Gastritis, unspecified, without bleeding; I95.89 Other hypotension; G89.29 Other chronic pain; Z79.899 Other long term (current) drug therapy; Y92.89 Other specified places as the place of occurrence of the external cause
CPT/HCPCS: 36415; 71045; 74176; 80048; 80053; 81001; 82270; 83735; 85025; 85610; 85730; 86850; 86900; 86901; G0378; J2250; J2470

== ENCOUNTER 2024-05-04 18:56 | Emergency (ER) | payer OTHER ==
[~2024-05-04] VITALS: Ht 188 cm; Wt 118.0 kg
[~2024-05-04 18:56] MED LIST: HYDR25TA5 PO; PANT40TA2 PO; SUCR1TAB31 OR
[2024-05-04 19:03] VITALS: BP 146/74; PULSE 78; RESP 20; O2SAT 98
[2024-05-04] MEDS ORDERED: MORPHINE SULFATE INJ 2 MG/ml SYRG IV ONE (20:00)
[2024-05-04] MEDS ORDERED: ONDANSETRON HCL 4 MG/2 ML VIAL IV ONE (20:00)
[2024-05-04] MEDS ORDERED: PANTOPRAZOLE 40 MG/10 ML VIAL INJ IV ONE (20:00)
--- NOTE | 2024-05-04 20:09 | ED.PDOC ---
GI ASSESSMENT HPI Comments 63-year-old male came to ER via EMS due to abdominal pain. Patient was just discharged yesterday and was diagnosed with 1. Upper GI bleed due to gastric ulcers, 2. Hypotension due to blood loss, 3. Acute anemia due to blood loss. Patient underwent endoscopy yesterday prior to discharge. Patient was at home when after eating fish started having severe, constant, cramping abdominal periumbilical pain associated with 5-6 episodes of vomiting. Denies any hematemesis or melena. He is still passing gas. Had a normal bowel movement this morning with no blood. Chief Complaint: Abdominal Pain Time Seen by MD: 20:14 Primary Care Provider: UNKNOWN Reviewed Notes: Nurses Notes, Senior Director Insight Notes Allergies: Coded Allergies: NO KNOWN ALLERGIES (Unverified , 04/30/24) Home Meds Active Scripts Sucralfate (CARAFATE) 1 Gm Tab, 1 GM OR QIDACHS for 30 Days, #120 TAB 2 Refills Prov:ALEKSANDER SHANE MD 05/03/24 Pantoprazole Sodium Sesquihydr (Protonix) 40 Mg Tab, 40 MG PO BID for 30 Days, #60 TAB 2 Refills Prov:ALEKSANDER SHANE MD 05/03/24 Reported Medications Hctz (Hydrochlorothiazide) 25 Mg Tab, 1 TAB PO DAILY 05/01/24 Discontinued Reported Medications Naproxen (NAPROSYN TABLET) 500 Mg Tb, 1 TAB PO BIDPRN 05/01/24 Information Source: Patient Mode of Arrival: EMS Timing: Hours Duration: Since onset Prehospital treatment: None Quality: Cramping Vomitus: Watery Stool: Normal Severity: Moderate Recent: NSAID'S Recent Hx of: GI Bleed Pain Location: Periumbilical Modifying Factors: Nothing Associated sign and symptoms: Vomiting, Abdominal Pain Review of Systems: REVIEW OF SYSTEMS: No fever, no chills, or fatigue HEENT: No sore throat, no earache, no congestion, no neck pain. Cardiac: No chest pain. No palpitations. Lungs: No shortness of breath, no cough. GI: No nausea, (+) vomiting, no diarrhea, no constipation, (+)abdominal pain : No dysuria, frequency, or urgency. No hematuria. Musculoskeletal: No joint pain , no joint swelling, no extremity edema. Skin: No rash, no itching. Neuro: No headache, no dizziness, no weakness Vital Signs Vital Signs Date Time Temp Pulse Resp B/P (MAP) Pulse Ox O2 Delivery O2 Flow Rate FiO2 05/04/24 19:03 97.7 78 20 146/74 (98) 98 Physical Exam General: Awake, alert and oriented. No acute distress. Skin: Skin in warm, dry and intact. Appropriate color for ethnicity. Nailbeds pink with no cyanosis. HEENT: The head is normocephalic and atraumatic. Conjunctivae are clear without exudates or hemorrhage. Sclera is non-icteric. EOM are intact. No signs of nystagmus. Eyelids are normal in appearance without swelling or lesions. Oral mucosa is pink and moist Neck: The neck is supple with normal range of motion. No JVD. Cardiac: Heart rate and rhythm are normal. No murmurs, gallops, or rubs are auscultated. Respiratory: No signs of respiratory distress. Lung sounds are clear in all lobes bilaterally without rales, ronchi, or wheezes. Abdominal: Abdomen is soft, generalized abdominal tenderness without distention. Bowel sounds are present and normoactive in all four quadrants. Extremities: Upper and lower extremities are atraumatic in appearance without deformity or edema. Neurological: The patient is awake, alert and oriented to person, place, and time with normal speech. Speech is clear. There is no facial asymmetry. Psychiatric: Appropriate mood and affect. Good judgement and insight. No visual or auditory hallucinations. Past Medical History PAST MEDICAL HISTORY: HTN Surgical History: Denies all surgeries Surgical History (Other): Endoscopy Family History Family History: Reviewed,noncontributory to illness, Unknown Social History Smoker: Non-Smoker Alcohol: Denies ETOH Use Drugs: Denies Drug Use Lives In: Home Was a procedure done? Was a procedure done?: No GI differential Dx Differential Diagnosis: Bowel Obstruction, Constipation, Diverticular disease, Gastritis/PUD, Gastroenteritis, Hernia, Pancreatitis, UTI, Urolithiasis, Other (Differential diagnoses considered include: Abdominal aortic aneurysm, NH, esophageal rupture, intestinal obstruction, mesenteric ischemia, perforated viscus or solid organ rupture, CHF with hepatomegaly, pneumonia, abscess, appendicitis, biliary disease, diverticulitis, gastritis, gastroenteritis, hepatitis, hernia, inflammatory bowel disease, pancreatitis, peptic ulcer disease, ureteral colic, constipation, GERD, irritable syndrome, abdominal wall pain, nonspecific abdominal pain, herpes zoster.) X-Ray, Labs, Meds, VS Vital Signs Date Time Temp Pulse Resp B/P (MAP) Pulse Ox O2 Delivery O2 Flow Rate FiO2 05/04/24 19:03 97.7 78 20 146/74 (98) 98 Time of 1ST Reevaluation: 20:08 Reevaluation 1ST: Unchanged Patient Education/Counseling: Diagnosis, Treatment Family Education/Counseling: No Family Present Departure 1 Departure Time of Disposition: 04:36 Impression: Primary Impression: Eloped from emergency department Additional Impression: Abdominal pain Disposition: 07 LEFT AWOL/ELOPED Condition: Stable Comments The following tests were ordered, and results were reviewed by me: (See diagnostic results section) The following test were independently interpreted by me: N/A I reviewed and agreed with the following test results read by other providers: N/A I reviewed the following notes from the pt's past medical encounters: May 03, 2024 recently discharged with Upper GI bleed due to gastric ulcers, Hypotension due to blood loss, Acute anemia due to blood loss Additional information was gathered from interviewing the following independent historians: N/A Discussion of management or test interpretation with external physician/other qualified health home health care worker: N/A Critical Care Note Critical Care Time?: No Stability Stability form required: No Heart Score Heart Score: Heart Score Response (Comments) Value History N/A 0 EKG N/A 0 Age N/A 0 Risk Factors N/A 0 Troponin N/A 0 Total 0 I personally scribed for NETO HORNER MD ([employer]) on 05/04/24 at 20:09. Electronically submitted by Roman Gonzales ([employer]). I personally scribed for NETO HORNER MD ([email or web address]) on 05/04/24 at 20:15. Electronically submitted by Roman Gonzales ([employer]). NETO HORNER MD May 04, 2024 20:09
--- NOTE | 2024-05-05 07:00 | ECG ---
[facility] Test Date: 2024-05-04 Test Time: 19:23:23 Pat Name: JANETTE SANCHES Department: er Room: Gender: M Stage Director: marie : 1960 Requested By: NETO HORNER Order Number: [id number] Reading MD: Measurements Intervals [place] Rate: 71 P: 58 VT: 193 QRS: 1 QRSD: 98 T: -1 QT: 383 QTc: 417 Interpretive Statements Sinus rhythm Baseline wander in lead(s) V4 Please click the below link to view image of tracing.
== END 2024-05-04 20:35 | disposition left against medical advice (07) ==
LOC: ER 18:56 → EDBD 18:56 → ER 20:35
DX: R10.33 Periumbilical pain (principal); I10 Essential (primary) hypertension; Z53.29 Procedure and treatment not carried out because of patient's decision for other reasons; Z98.890 Other specified postprocedural states; Z79.899 Other long term (current) drug therapy
CPT/HCPCS: 93005